=== PATIENT | male | born 1995 | race Caucasian/White ===

== ENCOUNTER 2019-01-01 19:53 | Emergency (ER) | payer OTHER, SELFPAY ==
[2019-01-01] MEDS ORDERED: Ibuprofen 800 MG TAB ONE (20:20)
[2019-01-01] MEDS ORDERED: levETIRAcetam 500 MG TAB PO SCH (20:30)
== END 2019-01-01 20:50 | disposition home or self-care (01) ==
LOC: ERS 19:53
DX: G40.909 Epilepsy, unspecified, not intractable, without status epilepticus (principal); Z79.899 Other long term (current) drug therapy
CPT/HCPCS: 99283

== ENCOUNTER 2021-06-23 18:44 | Emergency (ER) | payer BC, OTHER | END 2021-06-23 20:44 | disposition left against medical advice (07) | LOC: ERS 18:44 | DX: Z53.21 Procedure and treatment not carried out due to patient leaving prior to being seen by health care provider (principal) ==

== ENCOUNTER 2021-06-24 13:16 | Emergency (ER) | payer BC, OTHER ==
[2021-06-24] MEDS ORDERED: Ibuprofen 200 MG TAB ONE (14:19)
[2021-06-24] MEDS ORDERED: Acetaminophen 500 MG TAB ONE (14:19)
[2021-06-24 21:41] LABS: SARS-CoV-2 PCR by NAA DETECTED (NotDetected)
== END 2021-06-24 15:31 | disposition home or self-care (01) ==
LOC: ERS 13:16
DX: U07.1 COVID-19 (principal); Z79.899 Other long term (current) drug therapy
CPT/HCPCS: 99284; U0003; U0005

== ENCOUNTER 2022-05-20 10:19 | Outpatient (CLI) | payer SELFPAY | END 2022-05-20 10:20 | disposition home or self-care (01) | LOC: LABBT 10:19 | PROVIDERS: ATTEND Surgery Surgery of the Hand | DX: Z01.812 Encounter for preprocedural laboratory examination (principal); Z20.822 Contact with and (suspected) exposure to COVID-19 | CPT/HCPCS: 87811 ==

== ENCOUNTER 2022-10-29 10:34 | Emergency (ER) | payer BC ==
[2022-10-29] MEDS ORDERED: Fentanyl 100 MCG/2 ML VIAL ONE (12:11)
[2022-10-29] MEDS ORDERED: Diazepam 5 MG TAB ONE (12:11)
[2022-10-29] MEDS ORDERED: levETIRAcetam 500 MG/5 ML VIAL ONE (12:11)
[2022-10-29] MEDS ORDERED: PROPOFOL 20 ML ONE (12:23)
[2022-10-29] MEDS ORDERED: Ketamine 50 MG/ML (10ML VIAL) ONE (12:23)
[2022-10-29 12:54] LABS: #Basophils 0.1 thou/uL (0.0-0.2); #Eosinphils 0.3 thou/uL (0.0-0.7); #Lymphocytes 1.9 thou/uL (1.20-3.40); #Monocytes 1.4 thou/uL (0.11-0.59); #Neutrophils 14.2 thou/uL (1.40-6.50); %Basophils 0.5 % (0.0-1.0); %Eosinophils 1.9 % (0.0-10.0); %Lymphocytes 10.6 % (21.0-51.0); Hemoglobin 15.5 g/dL (14.0-18.0); Mean Corpuscular HGB CONC 35.2 g/dL (32.0-36.0); Mean Corpuscular Hemoglobin 31.7 pg (27.0-31.0); Mean Corpuscular Volume 90.1 fl (78.0-98.0); Mean Platelet Volume 7.9 fL (7.4-10.4); Platelet Count 267 10x3/uL (130-400); RBC Distribution Width 11.3 % (11.5-14.5); Red Blood Cell (RBC) Count 4.88 mill/uL (4.70-6.10)
[2022-10-29 13:17] LABS: ALT (SGPT) 30 U/L (8-55); AST (SGOT) 27 U/L (5-34); Albumin 4.4 g/dL (3.5-5.0); Alkaline Phosphatase 63 U/L (40-110); Anion Gap 12 mmol/L (10-20); BUN (Urea Nitrogen) 13 mg/dL (8.9-20.6); Bilirubin, Total 1.2 mg/dL (0.2-1.2); Calc. Creatinine Clearance 0 mL/min (70-130); Calcium 9.2 mg/dL (7.8-10.44); Carbon Dioxide 25 mmol/L (22-29); Chloride 104 mmol/L (98-107); Estimated GFR 105; Globulin 2.9 g/dL (2.4-3.5); Glucose 115 mg/dL (70-105); Potassium 4.3 mmol/L (3.5-5.1); Protein, Total 7.3 g/dL (6.0-8.3); Sodium 137 mmol/L (136-145)
== END 2022-10-29 14:01 | disposition home or self-care (01) ==
LOC: ERS 10:34
DX: S43.004A Unspecified dislocation of right shoulder joint, initial encounter (principal); S00.81XA Abrasion of other part of head, initial encounter; R56.9 Unspecified convulsions; W18.30XA Fall on same level, unspecified, initial encounter
CPT/HCPCS: 23650; 36415; 70450; 72125; 80053; 85025; 93005; 94760; 96374; 96375; J1953; J2704; J3010

== ENCOUNTER 2023-06-10 11:36 | Emergency (ER) | payer BC ==
[2023-06-10] MEDS ORDERED: fentaNYL 50 mcg/mL 1 mL Vial ONE (12:01)
[2023-06-10] MEDS ORDERED: levETIRAcetam 500 MG/5 ML VIAL ONE (12:01)
[2023-06-10 12:24] LABS: #Basophils 0.1 thou/uL (0.0-0.2); #Eosinphils 0.4 thou/uL (0.0-0.7); #Monocytes 0.8 thou/uL (0.11-0.59); #Neutrophils 4.8 thou/uL (1.40-6.50); %Lymphocytes 23.7 % (21.0-51.0); %Neutrophils 59.9 % (42.0-75.0); Hematocrit 43.3 % (42.0-52.0); Hemoglobin 15.1 g/dL (14.0-18.0); Mean Corpuscular HGB CONC 34.9 g/dL (32.0-36.0); Mean Corpuscular Hemoglobin 30.3 pg (27.0-31.0); Mean Corpuscular Volume 86.9 fl (78.0-98.0); Mean Platelet Volume 10.5 fL (7.4-10.4); Platelet Count 271 10x3/uL (130-400); RBC Distribution Width 11.9 % (11.5-14.5); Red Blood Cell (RBC) Count 4.98 mill/uL (4.70-6.10)
[2023-06-10] MEDS ORDERED: PROPOFOL 0 ML ONE (12:37)
[2023-06-10] MEDS ORDERED: Propofol 1,000 MG/100 ML VIAL IV ONE (12:37)
[2023-06-10 12:40] LABS: ALT (SGPT) 32 U/L (8-55); AST (SGOT) 20 U/L (5-34); Albumin 4.7 g/dL (3.5-5.0); Alkaline Phosphatase 79 U/L (40-110); Anion Gap 21 mmol/L (10-20); BUN (Urea Nitrogen) 17 mg/dL (8.9-20.6); Bilirubin, Total 1.4 mg/dL (0.2-1.2); Calc. Creatinine Clearance 0 mL/min (70-130); Calcium 9.9 mg/dL (7.8-10.44); Carbon Dioxide 20 mmol/L (22-29); Chloride 102 mmol/L (98-107); Estimated GFR 75; Globulin 2.8 g/dL (2.4-3.5); Glucose 132 mg/dL (70-105); Potassium 4.2 mmol/L (3.5-5.1); Protein, Total 7.5 g/dL (6.0-8.3); Sodium 139 mmol/L (136-145)
[2023-06-10] MEDS ORDERED: PROPOFOL 20 ML ONE (12:42)
== END 2023-06-10 16:02 | disposition home or self-care (01) ==
LOC: ERS 11:36
DX: S43.014A Anterior dislocation of right humerus, initial encounter (principal); G43.909 Migraine, unspecified, not intractable, without status migrainosus; W19.XXXA Unspecified fall, initial encounter
CPT/HCPCS: 23650; 36415; 71045; 80053; 85025; 96374; 96375; 99152; 99153; J1953; J2704; J3010

== ENCOUNTER 2023-07-08 08:24 | Outpatient (CLI) | payer BC | END 2023-07-08 08:25 | disposition home or self-care (01) | LOC: SCSMRI 08:24 | PROVIDERS: ATTEND Neurological Surgery | DX: D33.0 Benign neoplasm of brain, supratentorial (principal); G93.89 Other specified disorders of brain | CPT/HCPCS: 70553 ==